=== PATIENT | female | born 1945 | race Caucasian/White ===

== ENCOUNTER → 2016-09-17 | Outpatient (CLI) | payer BC | END | disposition home or self-care (01) | LOC: PT 10:43 ==

== ENCOUNTER 2016-10-11 10:57 | Outpatient (RCR) | payer BC | END 2016-12-09 10:38 | disposition home or self-care (01) | LOC: PT 10:57 | DX: Z47.1 Aftercare following joint replacement surgery (principal); Z96.651 Presence of right artificial knee joint; M17.11 Unilateral primary osteoarthritis, right knee ==

== ENCOUNTER 2017-11-30 15:46 | Emergency (ER) | payer MEDICARE ==
[~2017-11-30] VITALS: Ht 160 cm; Wt 90.9 kg
[2017-11-30] MEDS ORDERED: GLIMEPIRIDE2 M2 PO (15:53)
[2017-11-30] MEDS ORDERED: FUROSEMIDE20 MG PO (15:53)
[2017-11-30] MEDS ORDERED: METFORMIN HYD1000 MG PO (15:53)
[2017-11-30] MEDS ORDERED: LISINOPRIL40 MG PO (15:54)
[2017-11-30] MEDS ORDERED: LEVOTHYROXINE0.05 MG PO (15:54)
[2017-11-30] MEDS ORDERED: CARDIZEM120 M1 PO (15:54)
[2017-11-30 16:29] VITALS: BP 168/89
[2017-11-30 16:29] LABS: EOS # 0.2 (0.04-0.40); EOS % 2.8 % (1.0-5.0); HEMATOCRIT 40.9 % (37.0-47.0); HEMOGLOBIN 13.4 g/dL (12.5-16.0); LYMPH# 1.2 (1.50-4.00); MEAN CELL VOLUME 88 fl (78-100); MEAN CORPUSCULAR HEMOGLOBIN 29 pg (27-31); MEAN CORPUSCULAR HGB CONC 33 g/dL (33-37); MEAN PLATELET VOLUME 9.9 fl (7.4-10.4); MONO # 0.5 (0.20-0.80); NEU # 4.2 (1.40-6.50); PLATELET COUNT 266 K/mm3 (130-400); RED BLOOD COUNT 4.65 M/mm3 (4.10-5.30); WHITE BLOOD COUNT 6.1 K/mm3 (4.8-10.8)
[2017-11-30 16:37] LABS: ALBUMIN 4.3 g/dL (3.5-5.0); BUN/CREATININE RATIO 20.2 (6.0-26.0); CALCIUM 9.4 mg/dL (8.4-10.2); POTASSIUM 3.8 mmol/L (3.6-5.0); TOTAL BILIRUBIN 0.4 mg/dL (0.2-1.3); TOTAL PROTEIN 7.2 g/dL (6.3-8.2)
== END 2017-11-30 16:25 | disposition home or self-care (01) ==
LOC: ED 15:46
PROVIDERS: Physician Assistant
DX: E11.65 Type 2 diabetes mellitus with hyperglycemia (principal); Z79.84 Long term (current) use of oral hypoglycemic drugs; I10 Essential (primary) hypertension; E03.9 Hypothyroidism, unspecified

== ENCOUNTER → 2020-09-22 | Outpatient (CLI) | payer MEDICARE ==
[~2020-09-22] MED LIST: CARDIZEM120 M1 PO; FUROSEMIDE20 MG PO; GLIMEPIRIDE2 M2 PO; LEVOTHYROXINE0.05 MG PO; LISINOPRIL40 MG PO; METFORMIN HYD1000 MG PO
== END ==
LOC: LAB 09:42
DX: R05 Cough (principal); Z20.822 Contact with and (suspected) exposure to COVID-19

== ENCOUNTER 2020-12-03 10:51 | Outpatient (RCR) | payer MEDICARE | END 2021-03-03 | disposition still patient (30) | LOC: PT | DX: M25.552 Pain in left hip (principal) ==

== ENCOUNTER → 2021-03-04 | Day surgery (SDC) | payer MEDICARE | END | disposition home or self-care (01) | LOC: MSO 07:49 | DX: H25.13 Age-related nuclear cataract, bilateral (principal); I10 Essential (primary) hypertension; E11.9 Type 2 diabetes mellitus without complications; G47.33 Obstructive sleep apnea (adult) (pediatric); Z79.84 Long term (current) use of oral hypoglycemic drugs; Z79.899 Other long term (current) drug therapy | CPT/HCPCS: 00142; J0171; J2250; J2370; V2632 ==

== ENCOUNTER 2021-03-11 10:50 | Outpatient (RCR) | payer MEDICARE | END 2021-06-09 | disposition home or self-care (01) | LOC: PT | DX: M25.552 Pain in left hip (principal) ==

== ENCOUNTER 2022-10-04 10:48 | Outpatient (RCR) | payer MEDICARE | END 2022-10-22 | disposition home or self-care (01) | LOC: PT | DX: R26.0 Ataxic gait (principal); R26.9 Unspecified abnormalities of gait and mobility ==

== ENCOUNTER 2023-02-22 13:31 | Outpatient (RCR) | payer MEDICARE ==
[~2023-02-22 13:31] MED LIST changes: +CARVEDILOL12.5 MG PO; +GLIPIZIDE ER5 MG PO; +HYDROCHLOROTH12.5 M2 PO; +LEVOTHYROXIN0.088 MG PO; +LOSARTAN POTAS100 MG PO; +SIMVASTATIN10 M1 PO; +TOUJEO SOL300 UNIT/1 SQ
== END 2023-03-24 | disposition home or self-care (01) ==
LOC: PT
DX: R26.0 Ataxic gait (principal); R29.6 Repeated falls

== ENCOUNTER 2023-05-25 07:49 | Outpatient (RCR) | payer MEDICARE | END 2023-06-23 | disposition home or self-care (01) | LOC: PT | DX: R26.0 Ataxic gait (principal); R29.6 Repeated falls ==

== ENCOUNTER 2024-05-25 08:00 | Outpatient (RCR) | payer MEDICARE | END 2024-06-23 | LOC: PT | DX: R26.0 Ataxic gait (principal) ==